=== PATIENT | male | born 1960 | race Caucasian/White ===

== ENCOUNTER 2019-10-07 00:51 | Emergency (ER) | payer BC ==
[~2019-10-07] VITALS: Ht 182.9 cm; Wt 127.3 kg
[~2019-10-07 00:51] MED LIST: ALEV220T26 PO; AUGM875T28 PO; CIPR-249 PO; COLA100C5 PO; DOCU10CA PO; FLAG500T PO; MILK120011 PO; MOTR200T44 PO; PERC5TAB12 PO; TYLE325T5 PO; aleve OR; colace OR
[2019-10-07 01:12] LABS: BASO # 0.1 10^3/uL (0.0-0.2); BASO % 0.5 % (0.0-1.0); EOS # 0.2 10^3/uL (0.0-0.5); EOS % 1.3 % (0.0-3.0); HEMATOCRIT 49.5 % (42.0-52.0); HEMOGLOBIN 15.6 g/dl (13.5-17.5); LYMPH # 0.6 10^3/uL (1.5-5.0); LYMPH % 5.3 % (24.0-44.0); MEAN CORPUSCULAR HEMOGLOBIN 29.7 pg (27.0-33.0); MEAN CORPUSCULAR HGB CONC 31.5 g/dl (32.0-36.5); MEAN CORPUSCULAR VOLUME 94.3 fl (80.0-96.0); MONO # 0.4 10^3/uL (0.0-0.8); MONO % 3.1 % (0.0-5.0); NEUTROPHILS # 10.7 10^3/uL (1.5-8.5); NEUTROPHILS % 89.3 % (36.0-66.0); PLATELET COUNT, AUTOMATED 217 10^3/uL (150-450); RED BLOOD COUNT 5.25 10^6/uL (4.30-6.10)
[2019-10-07 01:23] LABS: INR 0.96; PROTHROMBIN TIME 12.5 SECONDS (11.8-14.0)
[2019-10-07 01:44] LABS: ALBUMIN 3.5 GM/DL (3.2-5.2); ALT/SGPT 45 U/L (12-78); BILIRUBIN,DIRECT 0.1 MG/DL (0.0-0.2); BILIRUBIN,TOTAL 0.4 MG/DL (0.2-1.0); BLOOD UREA NITROGEN 18 MG/DL (7-18); CALCIUM LEVEL 8.7 MG/DL (8.5-10.1); CARBON DIOXIDE LEVEL 26 MEQ/L (21-32); CHLORIDE LEVEL 105 MEQ/L (98-107); CK-MB VALUE MASS 1.7 NG/ML (<3.6); CPK CREATINE PHOSPHOKINASE 152 U/L (39-308); CREATININE FOR GFR 1.38 MG/DL (0.70-1.30); GLOMERULAR FILTRATION RATE 56.1 (>56); GLUCOSE, FASTING 173 MG/DL (70-100); LIPASE 350 U/L (73-393); MB/CK RELATIVE INDEX 1.12 (< OR =4); POTASSIUM SERUM 4.3 MEQ/L (3.5-5.1); SODIUM LEVEL 138 MEQ/L (136-145); TOTAL PROTEIN 7.4 GM/DL (6.4-8.2); TROPONIN I < 0.02 NG/ML (< 0.10)
[2019-10-07] MEDS ORDERED: ISOVUE-370 76% 100ML VIAL (Q9967) As Ordered ONE (02:01)
[2019-10-07] MEDS ORDERED: IPRATROPIUM 0.5MG/ALBUTEROL 2.5MG INH SOL UD 3ML (DUONEB)(J7620) NEB ONE (02:15)
--- NOTE | 2019-10-07 03:22 | REPVR ---
PROCEDURE INFORMATION: Exam: CT Angiography Chest With Contrast Exam date and time: 10/07/2019 1:56 AM Age: 59 years old Clinical indication: Shortness of breath; Additional info: Chest pain, SOB TECHNIQUE: Imaging protocol: Computed tomographic angiography of the chest with intravenous contrast. 3D rendering: MIP and/or 3D reconstructed images were created by the technologist. Radiation optimization: All CT scans at this facility use at least one of these dose optimization techniques: automated exposure control; mA and/or kV adjustment per patient size (includes targeted exams where dose is matched to clinical indication); or iterative reconstruction. Contrast material: ISO; Contrast volume: 75 ml; Contrast route: AC; COMPARISON: CT ANGIO CHEST 07/02/2015 7:45 AM FINDINGS: Pulmonary arteries: Pulmonary artery opacification is suboptimal. Majority of the contrast is in the systemic circulation. No central pulmonary embolism is seen. Evaluation of peripheral pulmonary arteries is limited due to poor contrast opacification. Aorta: Unremarkable. No aortic aneurysm. No aortic dissection. Lungs: Mild emphysematous changes. No airspace infiltrates or masses. Pleural space: Mild pleural thickening with some calcification in the right chest. Mild volume loss on the right. Heart: Coronary artery atherosclerotic disease is present. Liver: There is hepatomegaly and hepatic steatosis. Lymph nodes: Unremarkable. No enlarged lymph nodes. Bones/joints: Unremarkable. No acute fracture. Soft tissues: Unremarkable. IMPRESSION: 1. No central pulmonary embolism is seen. Evaluation is limited by poor contrast opacification of the pulmonary arteries however. 2. Emphysema and chronic lung changes. 3. Hepatic steatosis and hepatomegaly. Electronically signed by: Jordy Fry On 10/07/2019 03:21:51 AM
[2019-10-07] MEDS ORDERED: AZITHROMYCIN 250 MG TAB PO ONE (04:00)
[2019-10-07] MEDS ORDERED: ALBUTEROL 90 MCG/ACT 8GM HFA INHALER INH ONE (04:00)
[2019-10-07] MEDS ORDERED: methylPREDNISolone INJ 40 MG/1 ML VIAL (J2920) IV ONE (04:00)
[2019-10-07] MEDS ORDERED: PRED20TA PO (04:02)
[2019-10-07] MEDS ORDERED: AZIT-12 PO (04:02)
[2019-10-07 04:24] VITALS: BP 112/60
--- NOTE | 2019-10-07 05:52 | ECGEPIP ---
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
--- NOTE | 2019-10-07 07:04 | REP ---
Clinical: Chest pain. Comparison: 02/06/2015, 07/02/2015. Findings: Mediastinum and cardiac silhouette are normal. Lung whitney demonstrate chronic interstitial changes. Superimposed right lower lobe opacity is suggested. No obvious effusion. No pneumothorax. Skeletal structures are intact. Impression: Right lower lobe opacity. Electronically Signed by Nader Chang MD 10/07/2019 06:56 A
== END 2019-10-07 04:22 | disposition home or self-care (01) ==
LOC: M ED 00:51
DX: J44.1 Chronic obstructive pulmonary disease with (acute) exacerbation (principal); K76.0 Fatty (change of) liver, not elsewhere classified; R00.0 Tachycardia, unspecified; R91.8 Other nonspecific abnormal finding of lung field; Z79.2 Long term (current) use of antibiotics; Z79.52 Long term (current) use of systemic steroids; Z87.891 Personal history of nicotine dependence
CPT/HCPCS: 71045; 71275; 80048; 80076; 82550; 82553; 83690; 84484; 85025; 85610; 93005; 93041; 94640; 94760; 96374; 99285; J2920; Q9967

== ENCOUNTER → 2019-12-17 | Outpatient (CLI) | payer BC ==
[~2019-12-17] MED LIST changes: +AZIT-12 PO; +PRED20TA PO
--- NOTE | 2019-12-17 09:39 | REP ---
Bilateral lower extremity deep vein duplex ultrasound: The deep veins demonstrate normal compression, normal Doppler color flow and normal Doppler waveforms with respiration augmentation from the popliteal veins to the common femoral veins bilaterally. Impression: There is no deep vein thrombus in the right or left lower extremities. Electronically Signed by Alton Kidd MD 12/17/2019 09:30 A
--- NOTE | 2019-12-19 13:04 | ECHO ---
DATE OF STUDY: 12/17/2019 DATE OF : 236170 AGE: 59 GENDER: Male HEIGHT: 72 inches. WEIGHT: 303 pounds. BODY SURFACE AREA: 2.54 meters squared. OUTPATIENT REFERRING PHYSICIAN: Lashon Magaña INDICATION: Edema. MEASUREMENTS 2-D Measurements: RV: 3.0 cm LV: 4.8 cm Septum: 1.2 cm Posterior wall: 1.2 cm Aortic root: 3.6cm LA: 4.2 cm LVEF: 70% Doppler Measurements: AV: 1.6 m/s LVOT: 1.2 m/s LVOT diameter: 1.8 cm MV - E 67 A 73 EA ratio 0.9 Early mitral deceleration time: 243 ms E prime medial: 6 A prime medial: 8.1 E prime lateral: 10 Average E/E prime ratio: 8.4/PWCP: 12.3 mmHg PV: 0.9 Early mitral deceleration time: 103 ms PASP: 35 mmHg IVC: 2.1 cm COMMENTS: Normal sinus rhythm without intraventricular conduction disturbance. Technically challenging study in light of the patient's body habitus, but diagnostically useful information was still obtained. M-mode and two-dimensional echocardiography was performed with pulsed, continuous wave, color flow and tissue Doppler studies. Borderline concentric left ventricle hypertrophy with hyperkinetic wall motion. Mildly dilated left atrium with grade 1 LV diastolic dysfunction, but currently normal estimated mean left atrial pressure. Normal right heart chamber sizes and motion with single Doppler sign of mild pulmonary hypertension. Normal IVC size and adequate collapse against a significantly elevated central venous pressure. Normal appearing and functioning valvular structures. No apparent intracardiac mass or pericardial effusion.
== END ==
LOC: M RAD 08:16
PROVIDERS: ATTEND Nurse Practitioner Family
DX: R60.9 Edema, unspecified (principal)

== ENCOUNTER → 2020-01-04 | Outpatient (REF) | payer BC | LOC: M SFHCCLAY 13:43 | PROVIDERS: ATTEND Nurse Practitioner Family | DX: J02.9 Acute pharyngitis, unspecified (principal); Z20.818 Contact with and (suspected) exposure to other bacterial communicable diseases; Z20.828 Contact with and (suspected) exposure to other viral communicable diseases | CPT/HCPCS: 87486; 87581; 87633; 87798; U0002 ==

== ENCOUNTER → 2020-01-11 | Outpatient (REF) | payer BC ==
[2020-01-11 17:09] LABS: BASO # 0.1 10^3/uL (0.0-0.2); EOS # 0.4 10^3/uL (0.0-0.5); HEMATOCRIT 48.8 % (42.0-52.0); HEMOGLOBIN 15.9 g/dl (13.5-17.5); LYMPH # 2.8 10^3/uL (1.5-5.0); LYMPH % 35.5 % (24.0-44.0); MEAN CORPUSCULAR HEMOGLOBIN 30.4 pg (27.0-33.0); MEAN CORPUSCULAR HGB CONC 32.6 g/dl (32.0-36.5); MEAN CORPUSCULAR VOLUME 93.3 fl (80.0-96.0); MONO # 0.8 10^3/uL (0.0-0.8); MONO % 10.6 % (0.0-5.0); NEUTROPHILS # 3.7 10^3/uL (1.5-8.5); NEUTROPHILS % 47.4 % (36.0-66.0); PLATELET COUNT, AUTOMATED 248 10^3/uL (150-450); RED BLOOD COUNT 5.23 10^6/uL (4.30-6.10); WHITE BLOOD COUNT 7.9 10^3/uL (4.0-10.0)
[2020-01-11 17:21] LABS: ALBUMIN 3.8 GM/DL (3.2-5.2); ALT/SGPT 55 U/L (12-78); BILIRUBIN,TOTAL 0.5 MG/DL (0.2-1.0); BLOOD UREA NITROGEN 22 MG/DL (7-18); CALCIUM LEVEL 8.8 MG/DL (8.5-10.1); CARBON DIOXIDE LEVEL 29 MEQ/L (21-32); CHLORIDE LEVEL 104 MEQ/L (98-107); CHOLESTEROL LEVEL 238 MG/DL (<200); CREATININE FOR GFR 1.14 MG/DL (0.70-1.30); FREE T4 0.83 NG/DL (0.76-1.46); GLOMERULAR FILTRATION RATE > 60.0 (>56); GLUCOSE, FASTING 141 MG/DL (70-100); HDL CHOLESTEROL 35 MG/DL (>40); HEMOGLOBIN A1c 7.3 %; LDL CHOLESTEROL 157 MG/DL (<100); NON-HDL-C 203 MG/DL; NT-PRO BNP 30 PG/ML (<125); POTASSIUM SERUM 4.3 MEQ/L (3.5-5.1); SODIUM LEVEL 137 MEQ/L (136-145); TOTAL PROTEIN 7.8 GM/DL (6.4-8.2); TRIGLYCERIDES LEVEL 230 MG/DL (<150)
== END ==
LOC: M SFHCCLAY 09:45
PROVIDERS: ATTEND Nurse Practitioner Family
DX: R06.09 Other forms of dyspnea (principal); E66.01 Morbid (severe) obesity due to excess calories; F17.210 Nicotine dependence, cigarettes, uncomplicated; R60.9 Edema, unspecified; Z68.41 Body mass index [BMI] 40.0-44.9, adult

== ENCOUNTER → 2020-02-14 | Outpatient (REF) | payer BC ==
[2020-02-14 17:05] LABS: ALBUMIN 3.8 GM/DL (3.2-5.2); ALT/SGPT 63 U/L (12-78); BILIRUBIN,TOTAL 0.4 MG/DL (0.2-1.0); BLOOD UREA NITROGEN 15 MG/DL (7-18); CALCIUM LEVEL 8.4 MG/DL (8.5-10.1); CARBON DIOXIDE LEVEL 27 MEQ/L (21-32); CHLORIDE LEVEL 104 MEQ/L (98-107); CREATININE FOR GFR 0.96 MG/DL (0.70-1.30); GLOMERULAR FILTRATION RATE > 60.0 (>56); GLUCOSE, FASTING 130 MG/DL (70-100); POTASSIUM SERUM 4.4 MEQ/L (3.5-5.1); SODIUM LEVEL 138 MEQ/L (136-145); TOTAL PROTEIN 7.7 GM/DL (6.4-8.2)
== END ==
LOC: M SFHCCLAY 13:12
PROVIDERS: ATTEND Nurse Practitioner Family
DX: E11.9 Type 2 diabetes mellitus without complications (principal)

== ENCOUNTER → 2020-04-24 | Outpatient (CLI) | payer BC ==
--- NOTE | 2020-04-26 08:35 | PFTRPT ---
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 The patient was unable to maintain a pant frequency of 60 to 90 breaths per minute during the airway resistance measurement. Review Status: Not Reviewed Pre-Bronch Post-Bronch Pred Actual %Pred Actual %Chng SPIROMETRY FVC (L) 5.46 4.11 75 4.26 3 FEV1 (L) 4.13 2.84 68 2.90 2 FEV1/FVC (%) 76 69 91 68 -1 FEF 25% (L/sec) 9.12 5.98 65 6.61 10 FEF 50% (L/sec) 5.45 2.19 40 2.42 10 FEF 75% (L/sec) 1.78 0.53 29 0.73 37 FEF 25-75% (L/sec) 3.35 1.72 51 1.89 9 FEF Max (L/sec) 10.14 7.04 69 8.03 14 FIVC (L) 3.88 3.96 1 FIF 50% (L/sec) 4.72 3.38 71 3.46 2 FIF Max (L/sec) 3.47 4.62 33 MVV (L/min) 154 109 70 Expiratory Time (sec) 9.56 9.78 2 Back Extrap Vol (L) 0.13 0.13 5 Time To FEFmax (sec) 0.095 0.084 -11 LUNG VOLUMES SVC (L) 5.33 4.05 75 IC (L) 3.68 3.78 102 ERV (L) 1.65 0.27 16 TGV (L) 4.12 4.06 98 RV (Pleth) (L) 2.47 3.79 153 TLC (Pleth) (L) 7.80 7.84 100 RV/TLC (Pleth) (%) 33 48 146 DIFFUSION DLCOunc (ml/min/mmHg) 30.07 28.01 93 DLCOcor (ml/min/mmHg) 30.07 28.34 94 DL/VA (ml/min/mmHg/L) 3.86 3.88 100 VA (L) 7.80 7.30 93 BHT (sec) 11.63 IVC (L) 3.95 TLC (SB) (L) 7.45 AIRWAYS RESISTANCE Raw (cmH2O/L/s) 1.45 1.26 86 Gaw (L/s/cmH2O) 1.03 0.82 79 sRaw (cmH2O*s) 4.76 5.08 106 sGaw (1/cmH2O*s) 0.20 0.20 100 BLOOD GASES Hgb (gm/dL) 14.2
== END ==
LOC: M CARPUL 07:42
PROVIDERS: ATTEND Nurse Practitioner Family
DX: J44.9 Chronic obstructive pulmonary disease, unspecified (principal)

== ENCOUNTER → 2020-09-04 | Outpatient (REF) | payer BC ==
[2020-09-04 14:11] LABS: HEMOGLOBIN 15.5 g/dl (13.5-17.5); MEAN CORPUSCULAR HEMOGLOBIN 29.7 pg (27.0-33.0); PLATELET COUNT, AUTOMATED 269 10^3/uL (150-450); RED BLOOD COUNT 5.22 10^6/uL (4.30-6.10); WHITE BLOOD COUNT 8.9 10^3/uL (4.0-10.0)
[2020-09-04 14:20] LABS: ALBUMIN 3.8 GM/DL (3.2-5.2); ALT/SGPT 70 U/L (12-78); BILIRUBIN,TOTAL 0.6 MG/DL (0.2-1.0); BLOOD UREA NITROGEN 15 MG/DL (7-18); CALCIUM LEVEL 9.5 MG/DL (8.8-10.2); CARBON DIOXIDE LEVEL 31 MEQ/L (21-32); CHLORIDE LEVEL 98 MEQ/L (98-107); CREATININE FOR GFR 1.25 MG/DL (0.70-1.30); FREE T4 0.95 NG/DL (0.76-1.46); GLOMERULAR FILTRATION RATE > 60.0 (>49); GLUCOSE, FASTING 168 MG/DL (70-100); POTASSIUM SERUM 3.8 MEQ/L (3.5-5.1); SODIUM LEVEL 137 MEQ/L (136-145); TOTAL PROTEIN 7.5 GM/DL (6.4-8.2)
[2020-09-04 14:23] LABS: FOLLICLE STIMULATING HORMONE 4.1 mIU/mL (1.4-18.1); LUTEINIZING HORMONE 3.1 mIU/mL (1.5-9.3)
== END ==
LOC: M PLALAB 10:33
PROVIDERS: ATTEND Surgery
DX: N62 Hypertrophy of breast (principal)

== ENCOUNTER → 2020-09-04 | Outpatient (CLI) | payer BC ==
--- NOTE | 2020-09-04 10:39 | REP ---
INDICATION: GYNECOMASTIA PF LEFT BREAST N62. COMPARISON: Mammography comparison unilateral left breast mammography May 17, 2020 from [facility]. Comparison left breast sonography May 17, 2020 from [facility]. TECHNIQUE: Bilateral CC and MLO) view(s) were taken. FINDINGS: Scattered fibroglandular elements are seen in the subareolar region on the left. Normal fatty tissue is seen on the right. No suspicious or dominant density is seen. No microcalcification or architectural distortion is seen. No worrisome skin change is appreciated. 3-D tomosynthesis shows no additional finding. Sonography: Focused bilateral breast sonography is carried out. No cyst or mass is observed. Subtle hypoechoic fibroglandular pattern is seen on the left in the retroareolar region. No architectural distortion or other suspicious sonographic finding. IMPRESSION: BIRADS/ACR category 2 benign mammographic and sonographic findings. Unilateral left breast gynecomastia. Clinical follow-up is advised.. This mammogram was interpreted with the aid of an FDA-approved computer-aided detection system. The patient states she had a clinical breast exam in August of 2020 The patient letter being requested is male patient letter M 2. RECOMMENDATION: Recommend clinical follow-up.. <Electronically signed by Cole Cabrera > 09/04/20 [id number]
== END ==
LOC: M WHC 09:29
PROVIDERS: ATTEND Surgery
DX: N62 Hypertrophy of breast (principal)
CPT/HCPCS: 76642; 77066; G0279

== ENCOUNTER → 2020-09-21 | Outpatient (CLI) | payer BC ==
--- NOTE | 2020-09-21 17:25 | REP ---
INDICATION: INCISIONAL HERNIA COMPARISON: Comparison CT study is from July 02, 2015.. TECHNIQUE: Helical scanning is acquired in 4 mm axial images were reformatted. Coronal and sagittal MPR images were generated and reviewed. FINDINGS: Digital preliminary calciner operator helper radiograph demonstrates an unremarkable bowel gas pattern. There is some chronic pleuroparenchymal fibrosis in the right base. On axial CT images this pleuroparenchymal fibrosis in the right base is partially calcified. Calcific pleural plaquing. The left lung base is clear today. There is vascular calcification including left coronary artery vascular calcification. There is moderate diffuse fatty infiltration of the liver with areas of fat sparing in the right lobe and near the gallbladder. The spleen contains multiple granulomatous calcifications but is normal in size. Normal adrenal glands are seen. No abnormality is noted in the gallbladder or the pancreas. There is a 3 mm intrarenal calculus at mid pole level in the right kidney. No hydronephrosis is seen. There is a tiny intrarenal calculus at mid pole level on the left as well. This is visible on the MPR sagittal and coronal scan images. No hydronephrosis is seen. No renal mass lesion is observed. Vascular calcification is noted a normal caliber aorta. The urinary bladder is distended at the time the scan was acquired. Otherwise the bladder appears intact. There are dystrophic calcifications in the prostate gland. Anastomotic suture line is visible in the left colon status post sigmoid resection. There are sutures in or adjacent to the right colon as well. Normal appendix is visible in the right lower quadrant. There are multifocal defects in the anterior abdominal wall in the left periumbilical region with multiple areas where omental fat protrudes through the defects. There appear to be at least 4 separately identifiable abdominal wall defects through which omental fat protrudes into the subcutaneous fat. Largest of these defects measures 3.0 cm in greatest right to left dimension. There is osteoarthritic narrowing and subcortical cyst formation affecting both hips. Mild degenerative spondylosis changes seen in the lumbar spine. IMPRESSION: Multifocal somewhat complex appearing anterior abdominal wall defects in the left periumbilical region trans Quick omental fat. Bilateral intrarenal nephrolithiasis. Distention of the urinary bladder with chronic calcific changes in the prostate. Postoperative changes in the large intestine. Fatty infiltration of the liver. <Electronically signed by Cole Cabrera > 09/21/20 [id number]
== END ==
LOC: M RAD 14:57
PROVIDERS: ATTEND Surgery
DX: K43.2 Incisional hernia without obstruction or gangrene (principal); N20.0 Calculus of kidney; K76.0 Fatty (change of) liver, not elsewhere classified

== ENCOUNTER → 2021-02-06 | Outpatient (REF) | payer BC ==
[2021-02-06 13:46] LABS: BASO # 0.1 10^3/uL (0.0-0.2); BASO % 1.3 % (0.0-1.0); EOS # 0.3 10^3/uL (0.0-0.5); HEMATOCRIT 49.6 % (42.0-52.0); HEMOGLOBIN 16.3 g/dl (13.5-17.5); LYMPH # 2.9 10^3/uL (1.5-5.0); LYMPH % 33.8 % (24.0-44.0); MEAN CORPUSCULAR HEMOGLOBIN 30.2 pg (27.0-33.0); MEAN CORPUSCULAR HGB CONC 32.9 g/dl (32.0-36.5); MONO # 0.8 10^3/uL (0.0-0.8); MONO % 9.2 % (2.0-8.0); NEUTROPHILS # 4.4 10^3/uL (1.5-8.5); NEUTROPHILS % 51.2 % (36.0-66.0); PLATELET COUNT, AUTOMATED 235 10^3/uL (150-450); RED BLOOD COUNT 5.39 10^6/uL (4.30-6.10); WHITE BLOOD COUNT 8.5 10^3/uL (4.0-10.0)
[2021-02-06 14:23] LABS: HEMOGLOBIN A1c 11.1 %
[2021-02-06 14:30] LABS: ALBUMIN 3.8 GM/DL (3.2-5.2); ALT/SGPT 49 U/L (12-78); BILIRUBIN,TOTAL 0.8 MG/DL (0.2-1.0); BLOOD UREA NITROGEN 12 MG/DL (7-18); CALCIUM LEVEL 9.8 MG/DL (8.8-10.2); CARBON DIOXIDE LEVEL 31 MEQ/L (21-32); CHLORIDE LEVEL 97 MEQ/L (98-107); CHOLESTEROL LEVEL 156 MG/DL (<200); CREATININE FOR GFR 1.15 MG/DL (0.70-1.30); FREE T4 0.94 NG/DL (0.76-1.46); GLOMERULAR FILTRATION RATE > 60.0 (>49); GLUCOSE, FASTING 310 MG/DL (70-100); HDL CHOLESTEROL 39 MG/DL (>40); LDL CHOLESTEROL 60 MG/DL (<100); NON-HDL-C 117 MG/DL; POTASSIUM SERUM 3.6 MEQ/L (3.5-5.1); SODIUM LEVEL 135 MEQ/L (136-145); TOTAL PROTEIN 7.6 GM/DL (6.4-8.2); TRIGLYCERIDES LEVEL 283 MG/DL (<150)
[2021-02-06 14:39] LABS: CREATININE, URINE 75.4 MG/DL; MALB URINE SIEMENS 69.4 MG/L
== END ==
LOC: M SFHCCLAY 08:15
PROVIDERS: ATTEND Nurse Practitioner Family
DX: E78.5 Hyperlipidemia, unspecified (principal); Z87.19 Personal history of other diseases of the digestive system; E66.01 Morbid (severe) obesity due to excess calories; Z68.41 Body mass index [BMI] 40.0-44.9, adult; E55.9 Vitamin D deficiency, unspecified; J44.9 Chronic obstructive pulmonary disease, unspecified; E11.9 Type 2 diabetes mellitus without complications

== ENCOUNTER → 2021-05-15 | Outpatient (REF) | payer BC ==
[2021-05-15 16:44] LABS: ALBUMIN 3.9 GM/DL (3.2-5.2); ALT/SGPT 40 U/L (12-78); BILIRUBIN,TOTAL 0.4 MG/DL (0.2-1.0); BLOOD UREA NITROGEN 13 MG/DL (7-18); CALCIUM LEVEL 9.1 MG/DL (8.8-10.2); CARBON DIOXIDE LEVEL 29 MEQ/L (21-32); CHLORIDE LEVEL 107 MEQ/L (98-107); CREATININE FOR GFR 1.11 MG/DL (0.70-1.30); GLOMERULAR FILTRATION RATE > 60.0 (>49); GLUCOSE, FASTING 173 MG/DL (70-100); POTASSIUM SERUM 4.1 MEQ/L (3.5-5.1); SODIUM LEVEL 140 MEQ/L (136-145); TOTAL PROTEIN 7.3 GM/DL (6.4-8.2)
== END ==
LOC: M SFHCCLAY 07:13
PROVIDERS: ATTEND Nurse Practitioner Family
DX: E11.9 Type 2 diabetes mellitus without complications (principal); J44.9 Chronic obstructive pulmonary disease, unspecified; E66.01 Morbid (severe) obesity due to excess calories; F17.210 Nicotine dependence, cigarettes, uncomplicated; E55.9 Vitamin D deficiency, unspecified; R60.9 Edema, unspecified

== ENCOUNTER → 2021-11-15 | Outpatient (REF) | payer BC ==
[2021-11-15 16:36] LABS: ALT/SGPT 50 U/L (12-78); BILIRUBIN,TOTAL 0.4 MG/DL (0.2-1.0); BLOOD UREA NITROGEN 14 MG/DL (7-18); CALCIUM LEVEL 9.4 MG/DL (8.8-10.2); CARBON DIOXIDE LEVEL 29 MEQ/L (21-32); CHLORIDE LEVEL 102 MEQ/L (98-107); CHOLESTEROL LEVEL 153 MG/DL (<200); CHOLESTEROL RISK RATIO 3.731 (<5); CREATININE FOR GFR 0.99 MG/DL (0.70-1.30); GLOMERULAR FILTRATION RATE > 60.0 (>49); GLUCOSE, FASTING 129 MG/DL (70-100); HDL CHOLESTEROL 41 MG/DL (>40); LDL CHOLESTEROL 65 MG/DL (<100); NON-HDL-C 112 MG/DL; SODIUM LEVEL 138 MEQ/L (136-145); TOTAL PROTEIN 7.6 GM/DL (6.4-8.2); TRIGLYCERIDES LEVEL 234 MG/DL (<150)
[2021-11-15 17:00] LABS: TOTAL 25(OH) VITAMIN D 58.3 NG/ML (30.0-100.0)
[2021-11-15 17:22] LABS: HEMOGLOBIN A1c 7.6 %
== END ==
LOC: M SFHCCLAY 11:29
PROVIDERS: ATTEND Nurse Practitioner Family
DX: E11.9 Type 2 diabetes mellitus without complications (principal); J44.9 Chronic obstructive pulmonary disease, unspecified; E66.01 Morbid (severe) obesity due to excess calories; F17.210 Nicotine dependence, cigarettes, uncomplicated; E55.9 Vitamin D deficiency, unspecified; R60.9 Edema, unspecified; K76.0 Fatty (change of) liver, not elsewhere classified

== ENCOUNTER → 2022-02-20 | Outpatient (REF) | payer BC ==
[2022-02-20 12:03] LABS: HEMOGLOBIN A1c 7.7 %
[2022-02-20 12:09] LABS: ALBUMIN 3.5 GM/DL (3.2-5.2); ALT/SGPT 51 U/L (12-78); BILIRUBIN,TOTAL 0.4 MG/DL (0.2-1.0); BLOOD UREA NITROGEN 16 MG/DL (7-18); CALCIUM LEVEL 9.5 MG/DL (8.8-10.2); CARBON DIOXIDE LEVEL 28 MEQ/L (21-32); CHLORIDE LEVEL 108 MEQ/L (98-107); CREATININE FOR GFR 0.96 MG/DL (0.70-1.30); GLOMERULAR FILTRATION RATE > 60.0 (>49); GLUCOSE, FASTING 161 MG/DL (70-100); POTASSIUM SERUM 4.6 MEQ/L (3.5-5.1); SODIUM LEVEL 143 MEQ/L (136-145)
== END ==
LOC: M SFHCCLAY 07:15
PROVIDERS: ATTEND Nurse Practitioner Family
DX: E11.9 Type 2 diabetes mellitus without complications (principal)

== ENCOUNTER → 2022-06-11 | Outpatient (REF) | payer BC ==
[2022-06-11 18:35] LABS: ALBUMIN 3.8 GM/DL (3.2-5.2); ALT/SGPT 42 U/L (12-78); BILIRUBIN,TOTAL 0.6 MG/DL (0.2-1.0); BLOOD UREA NITROGEN 13 MG/DL (7-18); CALCIUM LEVEL 9.3 MG/DL (8.8-10.2); CARBON DIOXIDE LEVEL 27 MEQ/L (21-32); CHLORIDE LEVEL 106 MEQ/L (98-107); CREATININE FOR GFR 0.89 MG/DL (0.70-1.30); GLOMERULAR FILTRATION RATE > 60.0 (>49); GLUCOSE, FASTING 98 MG/DL (70-100); POTASSIUM SERUM 4.4 MEQ/L (3.5-5.1); SODIUM LEVEL 139 MEQ/L (136-145); TOTAL PROTEIN 7.1 GM/DL (6.4-8.2)
[2022-06-11 19:39] LABS: HEMOGLOBIN A1c 6.2 %
== END ==
LOC: M SFHCCLAY 11:14
PROVIDERS: ATTEND Nurse Practitioner Family
DX: E11.9 Type 2 diabetes mellitus without complications (principal)

== ENCOUNTER → 2022-11-05 | Outpatient (REF) | payer BC ==
[2022-11-05 12:17] LABS: ALBUMIN 3.8 G/DL (3.2-5.2); ALKALINE PHOSPHATASE 109 U/L (46-116); ALT/SGPT 32 U/L (7.0-40); AST/SGOT 28 U/L (<34); BILIRUBIN,TOTAL 0.5 MG/DL (0.3-1.2); BLOOD UREA NITROGEN 13 MG/DL (9-23); CALCIUM LEVEL 9.1 MG/DL (8.3-10.6); CARBON DIOXIDE LEVEL 29 MMOL/L (20-31); CHLORIDE LEVEL 104 MMOL/L (98-107); CREATININE FOR GFR 0.88 MG/DL (0.70-1.30); GLOMERULAR FILTRATION RATE > 60.0 (>49); GLUCOSE, FASTING 94 MG/DL (74-106); POTASSIUM SERUM 4.6 MMOL/L (3.5-5.1); SODIUM LEVEL 139 MMOL/L (136-145); TOTAL PROTEIN 7.1 G/DL (5.7-8.2)
[2022-11-05 12:22] LABS: HEMOGLOBIN A1c 5.6 % (4.0-6.0)
== END ==
LOC: M SFHCCLAY 09:00
PROVIDERS: ATTEND Nurse Practitioner Family
DX: E11.9 Type 2 diabetes mellitus without complications (principal)

== ENCOUNTER → 2022-11-20 | Outpatient (REF) | payer BC | LOC: M SFHCCLAY 09:55 | PROVIDERS: ATTEND Nurse Practitioner Family | DX: R35.0 Frequency of micturition (principal) ==

== ENCOUNTER → 2023-10-31 | Outpatient (CLI) | payer BC | LOC: M CLY 13:59 | PROVIDERS: ATTEND Urology | DX: R33.9 Retention of urine, unspecified (principal); R91.8 Other nonspecific abnormal finding of lung field ==

== ENCOUNTER → 2023-10-31 | Outpatient (REF) | payer BC ==
[2023-10-31 18:22] LABS: HEMATOCRIT 50.1 % (42.0-52.0); HEMOGLOBIN 16.6 g/dl (13.5-17.5); MEAN CORPUSCULAR HEMOGLOBIN 31.7 pg (27.0-33.0); MEAN CORPUSCULAR HGB CONC 33.1 g/dl (32.0-36.5); MEAN CORPUSCULAR VOLUME 95.6 fl (80.0-96.0); PLATELET COUNT, AUTOMATED 218 10^3/uL (150-450); RED BLOOD COUNT 5.24 10^6/uL (4.30-6.10); WHITE BLOOD COUNT 7.6 10^3/uL (4.0-10.0)
[2023-10-31 18:41] LABS: HEMOGLOBIN A1c 5.7 % (4.0-6.0)
[2023-10-31 18:47] LABS: ALBUMIN 3.8 G/DL (3.2-5.2); ALKALINE PHOSPHATASE 113 U/L (46-116); ALT/SGPT 24 U/L (7.0-40); AST/SGOT 16 U/L (<34); BILIRUBIN,TOTAL 0.3 MG/DL (0.3-1.2); BLOOD UREA NITROGEN 12 MG/DL (9-23); CARBON DIOXIDE LEVEL 32 MMOL/L (20-31); CHLORIDE LEVEL 104 MMOL/L (98-107); GLOMERULAR FILTRATION RATE > 60.0 (>49); GLUCOSE, FASTING 108 MG/DL (74-106); POTASSIUM SERUM 4.2 MMOL/L (3.5-5.1); SODIUM LEVEL 140 MMOL/L (136-145); TOTAL PROTEIN 6.9 G/DL (5.7-8.2)
== END ==
LOC: M SFHCCLAY 13:55
PROVIDERS: ATTEND Urology
DX: R33.9 Retention of urine, unspecified (principal); E11.9 Type 2 diabetes mellitus without complications

== ENCOUNTER 2023-11-06 10:49 | Day surgery (SDC) | payer BC ==
[~2023-11-06] VITALS: Ht 182.9 cm; Wt 126.5 kg
[~2023-11-06 10:49] MED LIST changes: +ATOR40TA75 PO; +B-COTAB10 PO; +DULO1CAP6 PO; +ERGO500029 PO; +FARX1TAB3 PO; +GABA-282 PO; +METF500T13 PO; +TRUL0.5I SC; +UNRESOLVED CLARIFICATION ENTRY XX SCH
[2023-11-06] MEDS ORDERED: LR 1,000 ML IV SCH (11:20)
[2023-11-06] MEDS ORDERED: propofoL 200 MG/20 ML VIAL As Ordered ONE (11:57)
[2023-11-06] MEDS ORDERED: fentaNYL 100 MCG/2 ML INJECTION As Ordered ONE (11:57)
[2023-11-06] MEDS ORDERED: LIDOCAINE 2% 100MG/5ML SDV (FOR ANES.) As Ordered ONE (11:57)
[2023-11-06] MEDS ORDERED: MIDAZOLAM INJ 2MG/2ML VIAL As Ordered ONE (11:57)
[2023-11-06] MEDS ORDERED: ceFAZolin SOD 2 GM in IV 1 EA IV ONE (12:00)
[2023-11-06] MEDS ORDERED: ceFAZolin SOD 1 GM in D5W MINI-BAG PLUS 50 ML IV ONE (12:00)
[2023-11-06] MEDS ORDERED: MACR100C43 PO (12:48)
[2023-11-06] MEDS ORDERED: OXYB5TAB11 PO (12:48)
[2023-11-06] MEDS ORDERED: PYRI1TAB5 PO (12:48)
[2023-11-06] MEDS ORDERED: fentaNYL 100 MCG/2 ML INJECTION IV PRN (13:00)
[2023-11-06] MEDS ORDERED: oxyCODONE 5MG TAB PO PRN (13:00)
[2023-11-06] MEDS ORDERED: MORPHINE 2 MG/ML 1ML VIAL IV PRN (13:00)
[2023-11-06] MEDS ORDERED: ONDANSETRON 4MG 2ML VIAL IV PRN (13:00)
[2023-11-06 14:45] VITALS: BP 129/81; TEMP 96.8; O2SAT 97
== END 2023-11-06 14:55 | disposition home or self-care (01) ==
LOC: M SDC 10:49
PROVIDERS: ATTEND Urology
DX: N35.919 Unspecified urethral stricture, male, unspecified site (principal); N31.2 Flaccid neuropathic bladder, not elsewhere classified; N32.89 Other specified disorders of bladder; R33.9 Retention of urine, unspecified; E11.9 Type 2 diabetes mellitus without complications; E78.5 Hyperlipidemia, unspecified; M54.9 Dorsalgia, unspecified; Z87.891 Personal history of nicotine dependence; Z79.899 Other long term (current) drug therapy; Z79.84 Long term (current) use of oral hypoglycemic drugs; Z79.85 Long-term (current) use of injectable non-insulin antidiabetic drugs
CPT/HCPCS: 52276; J0690; J2250; J3010

== ENCOUNTER → 2024-05-25 | Outpatient (REF) | payer BC ==
[~2024-05-25] MED LIST changes: +MACR100C43 PO; +OXYB5TAB14 PO; +PYRI1TAB5 PO; -UNRESOLVED CLARIFICATION ENTRY XX SCH
[2024-05-25 17:41] LABS: HEMOGLOBIN A1c 5.6 % (4.0-6.0)
[2024-05-25 17:53] LABS: ALBUMIN 3.8 G/DL (3.2-5.2); ALKALINE PHOSPHATASE 129 U/L (46-116); ALT/SGPT 30 U/L (7.0-40); AST/SGOT 17 U/L (<34); BILIRUBIN,TOTAL 0.6 MG/DL (0.3-1.2); BLOOD UREA NITROGEN 18 MG/DL (9-23); CALCIUM LEVEL 8.9 MG/DL (8.3-10.6); CARBON DIOXIDE LEVEL 30 MMOL/L (20-31); CHLORIDE LEVEL 106 MMOL/L (98-107); CREATININE FOR GFR 1.02 MG/DL (0.70-1.30); GLOMERULAR FILTRATION RATE > 60.0 (>49); GLUCOSE, FASTING 125 MG/DL (74-106); POTASSIUM SERUM 3.9 MMOL/L (3.5-5.1); SODIUM LEVEL 142 MMOL/L (136-145); TOTAL PROTEIN 7.2 G/DL (5.7-8.2)
== END ==
LOC: M SFHCCLAY 14:49
PROVIDERS: ATTEND Nurse Practitioner Family
DX: E11.42 Type 2 diabetes mellitus with diabetic polyneuropathy (principal)

== ENCOUNTER → 2024-09-09 | Outpatient (REF) | payer BC ==
[~2024-09-09] MED LIST changes: +GABA-1172 PO; -GABA-282 PO
[2024-09-09 11:49] LABS: BASO # 0.1 10^3/uL (0.0-0.2); BASO % 1.2 % (0.0-1.0); EOS # 0.5 10^3/uL (0.0-0.5); EOS % 5.7 % (0.0-3.0); HEMATOCRIT 47.8 % (42.0-52.0); LYMPH # 2.4 10^3/uL (1.5-5.0); LYMPH % 29.1 % (24.0-44.0); MEAN CORPUSCULAR HEMOGLOBIN 31.6 pg (27.0-33.0); MEAN CORPUSCULAR HGB CONC 33.5 g/dl (32.0-36.5); MEAN CORPUSCULAR VOLUME 94.5 fl (80.0-96.0); MONO # 0.8 10^3/uL (0.0-0.8); MONO % 9.7 % (2.0-8.0); NEUTROPHILS # 4.5 10^3/uL (1.5-8.5); NEUTROPHILS % 54.1 % (36.0-66.0); PLATELET COUNT, AUTOMATED 229 10^3/uL (150-450); RED BLOOD COUNT 5.06 10^6/uL (4.30-6.10); WHITE BLOOD COUNT 8.4 10^3/uL (4.0-10.0)
[2024-09-09 12:13] LABS: PSA SCREENING 0.18 NG/ML (< 4.00)
[2024-09-09 12:17] LABS: FREE T4 0.83 NG/DL (0.89-1.76); HEMOGLOBIN A1c 5.9 % (4.0-6.0); THYROID STIMULATING HORMONE 4.678 uIU/ML (0.55-4.78)
[2024-09-09 12:18] LABS: ALBUMIN 3.8 G/DL (3.2-5.2); ALKALINE PHOSPHATASE 121 U/L (40-129); ALT/SGPT 28 U/L (7.0-40); AST/SGOT 15 U/L (<34); BILIRUBIN,TOTAL 0.5 MG/DL (0.3-1.2); BLOOD UREA NITROGEN 19 MG/DL (9-23); CALCIUM LEVEL 9.5 MG/DL (8.3-10.6); CARBON DIOXIDE LEVEL 30 MMOL/L (20-31); CHLORIDE LEVEL 106 MMOL/L (98-107); CHOLESTEROL LEVEL 157 MG/DL (<200); CHOLESTEROL RISK RATIO 3.78 (<5); CREATININE FOR GFR 1.01 MG/DL (0.70-1.30); GLOMERULAR FILTRATION RATE > 60.0 (>49); GLUCOSE, FASTING 119 MG/DL (74-106); HDL CHOLESTEROL 41.5 MG/DL (>40); LDL CHOLESTEROL 83.5 MG/DL (<100); NON-HDL-C 115.5 MG/DL; POTASSIUM SERUM 4.1 MMOL/L (3.5-5.1); SODIUM LEVEL 141 MMOL/L (136-145); TOTAL PROTEIN 7.2 G/DL (5.7-8.2); TRIGLYCERIDES LEVEL 160 MG/DL (<150)
[2024-09-09 17:39] LABS: CREATININE, URINE 112.7 MG/DL; MAU/CREAT RATIO 59.4 MCG/MG (0.0-30.0)
== END ==
LOC: M SFHCCLAY 08:25
PROVIDERS: ATTEND Nurse Practitioner Family
DX: E78.5 Hyperlipidemia, unspecified (principal); Z87.19 Personal history of other diseases of the digestive system; E66.01 Morbid (severe) obesity due to excess calories; Z68.41 Body mass index [BMI] 40.0-44.9, adult; E55.9 Vitamin D deficiency, unspecified; J44.9 Chronic obstructive pulmonary disease, unspecified; E11.9 Type 2 diabetes mellitus without complications; E11.42 Type 2 diabetes mellitus with diabetic polyneuropathy; F17.210 Nicotine dependence, cigarettes, uncomplicated; R60.9 Edema, unspecified; K76.0 Fatty (change of) liver, not elsewhere classified; R35.0 Frequency of micturition

== ENCOUNTER → 2024-11-17 | Outpatient (REF) | payer OTHER ==
[2024-11-17 12:51] LABS: FREE T4 1.05 NG/DL (0.89-1.76)
[2024-11-17 12:52] LABS: THYROID STIMULATING HORMONE 1.276 uIU/ML (0.55-4.78)
== END ==
LOC: M SFHCCLAY 08:58
PROVIDERS: ATTEND Nurse Practitioner Family
DX: E03.9 Hypothyroidism, unspecified (principal)